=== PATIENT | female | born 1970 | race Caucasian/White ===

== ENCOUNTER 2023-09-08 20:39 | Inpatient (IN) | payer BC, MEDICARE ==
[2023-09-08 23:03] LABS: #Basophils 0.1 thou/uL (0.0-0.2); #Eosinphils 2.3 thou/uL (0.0-0.7); #Monocytes 1.5 thou/uL (0.11-0.59); #Neutrophils 10.2 thou/uL (1.40-6.50); %Basophils 0.3 % (0.0-1.0); %Lymphocytes 19.4 % (21.0-51.0); %Monocytes 8.3 % (0.0-10.0); %Neutrophils 58.5 % (42.0-75.0); Hematocrit 23.1 % (36.0-47.0); Hemoglobin 7.1 g/dL (12.0-16.0); Mean Corpuscular HGB CONC 30.7 g/dL (32.0-36.0); Mean Corpuscular Hemoglobin 27.5 pg (27.0-31.0); Mean Corpuscular Volume 89.5 fl (78.0-98.0); Mean Platelet Volume 10.5 fL (7.4-10.4); Platelet Count 455 10x3/uL (130-400); RBC Distribution Width 22.8 % (11.5-14.5); Red Blood Cell (RBC) Count 2.58 mill/uL (4.20-5.40); White Blood Cell (WBC) Count 17.5 10x3/uL (4.8-10.8)
[2023-09-08] MEDS ORDERED: Cefepime 2 GM VIAL ONE (23:06)
[2023-09-08] MEDS ORDERED: Ipratropium/Albuterol 3 ML NEB ONE (23:24)
[2023-09-08 23:32] LABS: ALT (SGPT) 46 U/L (8-55); AST (SGOT) 24 U/L (5-34); Albumin 3.8 g/dL (3.5-5.0); Alkaline Phosphatase 106 U/L (40-110); Anion Gap 16 mmol/L (10-20); BUN (Urea Nitrogen) 20 mg/dL (9.8-20.1); Bilirubin, Total 0.2 mg/dL (0.2-1.2); Calc. Creatinine Clearance 0 mL/min (70-130); Calcium 9.2 mg/dL (7.8-10.44); Carbon Dioxide 24 mmol/L (22-29); Chloride 103 mmol/L (98-107); Estimated GFR 105; Globulin 3.2 g/dL (2.4-3.5); Glucose 86 mg/dL (70-105); Potassium 4.2 mmol/L (3.5-5.1); Sodium 139 mmol/L (136-145)
[2023-09-08 23:39] LABS: Bacteria/HPF None Seen HPF (None Seen); Bilirubin Negative (Negative); Blood, Urine 2+ (Negative); CAUTI Indications for Culture Fever or rigors; Clarity Clear (Clear); Glucose, Urine (Dipstick) Normal (Negative); Ketone, Urine Negative (Negative); Leukocyte Negative Leu/uL (Negative); Nitrite Negative (Negative); Protein, Urine (Dipstick) Negative (Neg-Trace); RBC/HPF 0-3 HPF (0-3); Specific Gravity, Urine 1.023 (1.002-1.036); Squamous Epithelial None Seen HPF (0-3); Urobilinogen Normal mg/dL (Less than 2); WBC/HPF 0-3 HPF (0-3)
[2023-09-08 23:52] LABS: Urine Culture Reflex No No
[2023-09-09] MEDS ORDERED: HYDROmorphone 0.5 MG/0.5 ML SYRINGE ONE (00:39)
[2023-09-09] MEDS ORDERED: Acetaminophen 325 MG TAB PO PRN (02:41)
[2023-09-09] MEDS ORDERED: Ondansetron ODT 4 MG TAB PO PRN (02:41)
[2023-09-09] MEDS ORDERED: Ondansetron PF 4 MG/2 ML Vial IVP PRN (02:41)
[2023-09-09] MEDS ORDERED: Senokot 8.6 MG TAB PO PRN (02:43)
[2023-09-09] MEDS ORDERED: LORazepam 2 MG/ML SYR.(CARPUJECT) ONE (03:01)
[2023-09-09 03:42] LABS: Lactic Acid 0.9 mmol/L (0.5-2.2)
[2023-09-09 03:44] LABS: Anion Gap 12 mmol/L (10-20); BUN (Urea Nitrogen) 18 mg/dL (9.8-20.1); CRP (Inflammatory) 9.08 mg/dL (= or < 0.5); Calc. Creatinine Clearance 0 mL/min (70-130); Calcium 8.9 mg/dL (7.8-10.44); Carbon Dioxide 27 mmol/L (22-29); Chloride 104 mmol/L (98-107); Estimated GFR 105; Glucose 88 mg/dL (70-105); Potassium 3.9 mmol/L (3.5-5.1); Sodium 139 mmol/L (136-145)
[2023-09-09 04:39] VITALS: BMI 25.4
[2023-09-09] MEDS ORDERED: Lactated Ringer's 500 ML IV SCH (05:15)
[2023-09-09] MEDS ORDERED: Clindamycin/D5W 600 MG in Premix Bag 1 BAG IVPB SCH (08:00)
[2023-09-09] MEDS: Polyethylene Glycol 3350 17 GM Packet PO SCH (08:19)
[2023-09-09] MEDS: Heparin 5,000 UNITS/ML VIAL SC SCH ×3 (08:19→21:20)
[2023-09-09] MEDS: fentaNYL 50 mcg/mL 1 mL Vial SLOW IVP PRN ×3 (08:52→15:16)
[2023-09-09] MEDS ORDERED: Cefepime 2 GM in Sodium Chloride 0.9% 100 ML IVPB SCH (09:00)
[2023-09-09 10:44] LABS: Amphetamine Not Detected (NotDetected); Barbiturates Screen Not Detected (NotDetected); Benzodiazepine Screen Detected (NotDetected); Cocaine Metabolite Screen Not Detected (NotDetected); Methadone Not Detected (NotDetected); Methamphetamine Not Detected (NotDetected); Opiate Screen Detected (NotDetected); Oxycodone Screen Detected (NotDetected); Phencyclidine (PCP) Not Detected (NotDetected); THC/Cannabinoid Screen Not Detected (NotDetected); Tricyclic Screen Detected (NotDetected)
[2023-09-09 10:53] LABS: #Basophils 0.1 thou/uL (0.0-0.2); #Eosinphils 1.7 thou/uL (0.0-0.7); #Monocytes 0.9 thou/uL (0.11-0.59); #Neutrophils 6.1 thou/uL (1.40-6.50); %Basophils 0.5 % (0.0-1.0); %Eosinophils 16.2 % (0.0-10.0); %Lymphocytes 18.2 % (21.0-51.0); %Monocytes 8.4 % (0.0-10.0); %Neutrophils 56.4 % (42.0-75.0); Hematocrit 28.2 % (36.0-47.0); Hemoglobin 8.7 g/dL (12.0-16.0); Mean Corpuscular HGB CONC 30.9 g/dL (32.0-36.0); Mean Corpuscular Hemoglobin 26.6 pg (27.0-31.0); Mean Platelet Volume 10.5 fL (7.4-10.4); Platelet Count 360 10x3/uL (130-400); Red Blood Cell (RBC) Count 3.27 mill/uL (4.20-5.40); White Blood Cell (WBC) Count 10.8 10x3/uL (4.8-10.8)
[2023-09-09 11:29] LABS: Mean Corpuscular Volume 86.2 fl (78.0-98.0)
[2023-09-09] MEDS ORDERED: HYDROcodone/Acetaminophen 5/325 mg Tablet PO PRN (12:14)
[2023-09-09] MEDS: hydrOXYzine 25 MG TAB PO PRN ×2 (15:20→21:20)
[2023-09-09] MEDS: HYDROcodone/Acetaminophen 5/325 mg Tablet PO PRN ×2 (18:03→23:35)
[2023-09-09] MEDS: Ipratropium/Albuterol 3 ML NEB NEB PRN (19:02)
[2023-09-09] MEDS ORDERED: HYDROmorphone 2 MG TAB PO SCH (21:00)
[2023-09-09] MEDS: Pramipexole Di-HCl 1 MG TAB PO SCH (21:19)
[2023-09-09] MEDS: Amitriptyline HCl 25 MG TAB PO SCH (21:20)
[2023-09-09] MEDS: Carvedilol 3.125 MG TAB PO SCH (21:20)
[2023-09-09] MEDS: Linezolid 600 MG in Premix Bag 1 BAG IVPB SCH (21:21)
[2023-09-09] MEDS ORDERED: tiZANidine HCl 4 MG TAB PO SCH (23:59)
[2023-09-10] MEDS: Ipratropium/Albuterol 3 ML NEB NEB PRN ×3 (02:06→19:44)
[2023-09-10] MEDS: HYDROcodone/Acetaminophen 5/325 mg Tablet PO PRN ×2 (03:47→08:22)
[2023-09-10 05:09] LABS: #Basophils 0.1 thou/uL (0.0-0.2); #Neutrophils 4.1 thou/uL (1.40-6.50); %Basophils 0.7 % (0.0-1.0); %Eosinophils 21.6 % (0.0-10.0); %Lymphocytes 21.8 % (21.0-51.0); %Monocytes 10.6 % (0.0-10.0); %Neutrophils 45.1 % (42.0-75.0); Hematocrit 28.6 % (36.0-47.0); Hemoglobin 8.6 g/dL (12.0-16.0); Mean Corpuscular HGB CONC 30.1 g/dL (32.0-36.0); Mean Corpuscular Hemoglobin 26.5 pg (27.0-31.0); Mean Corpuscular Volume 88.3 fl (78.0-98.0); Mean Platelet Volume 10.1 fL (7.4-10.4); Platelet Count 349 10x3/uL (130-400); RBC Distribution Width 23.4 % (11.5-14.5); Red Blood Cell (RBC) Count 3.24 mill/uL (4.20-5.40)
[2023-09-10 05:37] LABS: Anion Gap 12 mmol/L (10-20); BUN (Urea Nitrogen) 13 mg/dL (9.8-20.1); Calc. Creatinine Clearance 119 mL/min (70-130); Calcium 8.6 mg/dL (7.8-10.44); Carbon Dioxide 26 mmol/L (22-29); Chloride 104 mmol/L (98-107); Estimated GFR 105; Glucose 123 mg/dL (70-105); Potassium 3.8 mmol/L (3.5-5.1); Sodium 138 mmol/L (136-145)
[2023-09-10] MEDS: Pramipexole Di-HCl 1 MG TAB PO SCH ×3 (08:22→20:43)
[2023-09-10] MEDS: Cefepime 2 GM in Sodium Chloride 0.9% 100 ML IVPB SCH ×2 (08:23→20:41)
[2023-09-10] MEDS: Carvedilol 3.125 MG TAB PO SCH ×2 (08:23→20:43)
[2023-09-10] MEDS: Polyethylene Glycol 3350 17 GM Packet PO SCH (08:25)
[2023-09-10] MEDS: Heparin 5,000 UNITS/ML VIAL SC SCH ×3 (08:26→20:43)
[2023-09-10] MEDS: Docusate 100 MG CAP PO PRN (10:58)
[2023-09-10] MEDS: hydrOXYzine 25 MG TAB PO PRN ×3 (10:58→23:19)
[2023-09-10] MEDS: Linezolid 600 MG in Premix Bag 1 BAG IVPB SCH (11:00)
[2023-09-10] MEDS: HYDROcodone/Acetaminophen 10/325 mg Tablet PO PRN ×3 (12:41→20:44)
[2023-09-10] MEDS: Ibuprofen 200 MG TAB PO SCH ×3 (12:42→23:19)
[2023-09-10] MEDS: Gabapentin 100 MG CAP PO SCH ×2 (15:10→20:42)
[2023-09-10] MEDS: Amitriptyline HCl 25 MG TAB PO SCH (20:42)
[2023-09-10] MEDS: Linezolid 600 MG TAB PO SCH (20:43)
[2023-09-11] MEDS: HYDROcodone/Acetaminophen 10/325 mg Tablet PO PRN ×4 (04:51→18:22)
[2023-09-11 05:35] LABS: Hematocrit 32.5 % (36.0-47.0); Hemoglobin 9.7 g/dL (12.0-16.0); Manual Diff?? YES; Mean Corpuscular HGB CONC 29.8 g/dL (32.0-36.0); Mean Corpuscular Hemoglobin 26.7 pg (27.0-31.0); Mean Corpuscular Volume 89.5 fl (78.0-98.0); Mean Platelet Volume 10.2 fL (7.4-10.4); Platelet Count 408 10x3/uL (130-400); RBC Distribution Width 23.4 % (11.5-14.5); Red Blood Cell (RBC) Count 3.63 mill/uL (4.20-5.40); White Blood Cell (WBC) Count 8.6 10x3/uL (4.8-10.8)
[2023-09-11 05:53] LABS: Delete Auto Diff?? YES
[2023-09-11] MEDS: Ibuprofen 200 MG TAB PO SCH ×3 (06:21→18:21)
[2023-09-11 06:23] LABS: Anisocytosis MARKED = >30 cells HPF (0-5); Band 1 % (5-11); CellaVision Operator ID lab.sh2; Eosinophils 28 % (0-10); Hypochromia SLIGHT = 6-15 cells HPF (0-5); Lymphocytes 22 % (21-51); Macrocytosis MODERATE=16-30 cells HPF (0-5); Monocytes 4 % (0-10); Neutrophil 43 % (42-75); Platelet Adequacy Comment Platelets Increased; Poikilocytosis SLIGHT = 6-15 cells HPF (0-5); Polychromasia SLIGHT = 2-3 cells HPF (0-2); Reactive Lymphocytes 1 % (0-10); Smudge Cells 17.2 %; Tear Drops SLIGHT = 2-5 cells HPF (0-1); Total Cell Count 99
[2023-09-11 07:01] LABS: Anion Gap 14 mmol/L (10-20); BUN (Urea Nitrogen) 14 mg/dL (9.8-20.1); Calc. Creatinine Clearance 109 mL/min (70-130); Calcium 9.1 mg/dL (7.8-10.44); Carbon Dioxide 24 mmol/L (22-29); Chloride 106 mmol/L (98-107); Estimated GFR 103; Glucose 94 mg/dL (70-105); Potassium 4.6 mmol/L (3.5-5.1); Sodium 139 mmol/L (136-145)
[2023-09-11] MEDS: Ipratropium/Albuterol 3 ML NEB NEB PRN ×2 (07:28→18:39)
[2023-09-11] MEDS: Polyethylene Glycol 3350 17 GM Packet PO SCH (07:58)
[2023-09-11] MEDS: Pramipexole Di-HCl 1 MG TAB PO SCH ×2 (07:59→11:42)
[2023-09-11] MEDS: Cefepime 2 GM in Sodium Chloride 0.9% 100 ML IVPB SCH (07:59)
[2023-09-11] MEDS: Gabapentin 100 MG CAP PO SCH (07:59)
[2023-09-11] MEDS: Heparin 5,000 UNITS/ML VIAL SC SCH ×2 (07:59→14:53)
[2023-09-11] MEDS: Carvedilol 3.125 MG TAB PO SCH (08:00)
[2023-09-11] MEDS: Linezolid 600 MG TAB PO SCH (08:00)
[2023-09-11] MEDS: Docusate 100 MG CAP PO PRN (08:08)
[2023-09-11] MEDS ORDERED: Furosemide 20 MG TAB PO SCH (09:00)
[2023-09-11] MEDS ORDERED: Melatonin 3 MG TAB PO PRN (11:52)
[2023-09-11 16:53] VITALS: BP 129/75; TEMP 98.5
[2023-09-11] MEDS ORDERED: Gabapentin 300 MG CAP PO SCH (21:00)
== END 2023-09-11 19:47 | disposition short-term general hospital (02) | DRG 871 ==
LOC: ERS 20:39 → T4-A 09-09 02:44
PROVIDERS: ADMIT Student in an Organized Health Care Education/Training Program; ATTEND Student in an Organized Health Care Education/Training Program
DX: A41.9 Sepsis, unspecified organism (principal); L89.154 Pressure ulcer of sacral region, stage 4; L97.429 Non-pressure chronic ulcer of left heel and midfoot with unspecified severity; L97.419 Non-pressure chronic ulcer of right heel and midfoot with unspecified severity; D68.59 Other primary thrombophilia; E86.0 Dehydration; D64.9 Anemia, unspecified; I50.9 Heart failure, unspecified; J44.9 Chronic obstructive pulmonary disease, unspecified; G25.81 Restless legs syndrome; M79.7 Fibromyalgia; I73.00 Raynaud's syndrome without gangrene; F41.9 Anxiety disorder, unspecified; E16.2 Hypoglycemia, unspecified; Z88.1 Allergy status to other antibiotic agents; Z88.8 Allergy status to other drugs, medicaments and biological substances; Z87.891 Personal history of nicotine dependence; Z90.49 Acquired absence of other specified parts of digestive tract; Z90.710 Acquired absence of both cervix and uterus; Z98.890 Other specified postprocedural states
CPT/HCPCS: 36415; 80048; 80053; 80306; 81001; 83605; 85025; 86140; 87040; 87086; 94640; 94760; 96365; 96367; 96375; 97139; J0692; J1170; J1644; J2020; J2060; J2405; J3010; J3490; J7120; J7620

== ENCOUNTER 2023-10-10 11:39 | Inpatient (IN) | payer BC, MEDICARE ==
[2023-10-10 12:46] LABS: #Basophils 0.2 thou/uL (0.0-0.2); #Eosinphils 1.5 thou/uL (0.0-0.7); #Monocytes 1.4 thou/uL (0.11-0.59); #Neutrophils 10.1 thou/uL (1.40-6.50); %Eosinophils 9.1 % (0.0-10.0); %Lymphocytes 17.7 % (21.0-51.0); %Monocytes 8.7 % (0.0-10.0); %Neutrophils 62.6 % (42.0-75.0); Hematocrit 40.1 % (36.0-47.0); Hemoglobin 12.7 g/dL (12.0-16.0); Mean Corpuscular HGB CONC 31.7 g/dL (32.0-36.0); Mean Corpuscular Hemoglobin 27.4 pg (27.0-31.0); Mean Corpuscular Volume 86.4 fl (78.0-98.0); Mean Platelet Volume 9.1 fL (7.4-10.4); Platelet Count 632 10x3/uL (130-400); RBC Distribution Width 22.3 % (11.5-14.5); Red Blood Cell (RBC) Count 4.64 mill/uL (4.20-5.40); White Blood Cell (WBC) Count 16.2 10x3/uL (4.8-10.8)
[2023-10-10 12:58] LABS: Bilirubin Negative (Negative); Blood, Urine 2+ (Negative); CAUTI Indications for Culture Pelvic or flank pain; Clarity Turbid (Clear); Glucose, Urine (Dipstick) Normal (Negative); Ketone, Urine Negative (Negative); Leukocyte 250 Leu/uL (Negative); Nitrite Negative (Negative); Protein, Urine (Dipstick) 100 mg/dL (Neg-Trace); Specific Gravity, Urine 1.028 (1.002-1.036); Squamous Epithelial 0-3 HPF (0-3); Urobilinogen Normal mg/dL (Less than 2); WBC/HPF 21-50 HPF (0-3); Yeast-Budding 2+ HPF (None Seen); pH, Urine 5.5 (5.0-9.0)
[2023-10-10 13:11] LABS: ALT (SGPT) 26 U/L (8-55); AST (SGOT) 35 U/L (5-34); Albumin 4.4 g/dL (3.5-5.0); Alkaline Phosphatase 172 U/L (40-110); Anion Gap 20 mmol/L (10-20); BUN (Urea Nitrogen) 31 mg/dL (9.8-20.1); Bilirubin, Total 0.4 mg/dL (0.2-1.2); Calc. Creatinine Clearance 0 mL/min (70-130); Calcium 10.5 mg/dL (7.8-10.44); Carbon Dioxide 27 mmol/L (22-29); Chloride 98 mmol/L (98-107); Estimated GFR 90; Glucose 107 mg/dL (70-105); Lipase 35 U/L (8-78); Potassium 4.8 mmol/L (3.5-5.1); Protein, Total 9.4 g/dL (6.0-8.3); Sodium 140 mmol/L (136-145)
[2023-10-10] MEDS ORDERED: Iopamidol-370 76% 500 ML MDV (1 ML CHARGE) ONE (13:12)
[2023-10-10 13:14] LABS: Bacteria/HPF 1+ HPF (None Seen)
[2023-10-10 13:16] LABS: Urine Culture Reflex Yes Yes
[2023-10-10] MEDS ORDERED: Ondansetron PF 4 MG/2 ML Vial ONE (13:23)
[2023-10-10] MEDS ORDERED: fentaNYL 50 mcg/mL 1 mL Vial ONE ×2 (13:23→16:18)
[2023-10-10] MEDS ORDERED: Pantoprazole 40 MG VIAL ONE (13:24)
[2023-10-10] MEDS ORDERED: cefTRIAXone (ROCEPHIN) 1 GM VIAL ONE (15:27)
[2023-10-10] MEDS ORDERED: Clindamycin/D5W 600 mg/50 ml Premix Bag ONE (15:27)
[2023-10-10] MEDS ORDERED: Sodium Chloride 0.9% 100 ML ONE (15:27)
[2023-10-10] MEDS ORDERED: Ondansetron PF 4 MG/2 ML Vial IVP PRN (16:23)
[2023-10-10] MEDS ORDERED: Ondansetron ODT 4 MG TAB PO PRN (16:23)
[2023-10-10] MEDS ORDERED: Melatonin 3 MG TAB PO PRN (17:12)
[2023-10-10] MEDS ORDERED: hydrOXYzine 25 MG TAB PO PRN (17:12)
[2023-10-10] MEDS ORDERED: Senokot 8.6 MG TAB PO PRN (17:12)
[2023-10-10] MEDS ORDERED: Albuterol 200 PUFF (6.7GM INHALER) INH PRN (17:12)
[2023-10-10] MEDS ORDERED: Docusate 100 MG CAP PO PRN (17:12)
[2023-10-10] MEDS: Lactated Ringer's 1,000 ML IV SCH (20:48)
[2023-10-10] MEDS: Acetaminophen 500 MG TAB PO SCH (20:49)
[2023-10-10] MEDS: Ibuprofen 200 MG TAB PO SCH (20:49)
[2023-10-10] MEDS: CeleCOXIB 100 MG CAP PO SCH (20:50)
[2023-10-10] MEDS: Carvedilol 3.125 MG TAB PO SCH (20:50)
[2023-10-10] MEDS: Amitriptyline HCl 25 MG TAB PO SCH (20:50)
[2023-10-10] MEDS: tiZANidine HCl 4 MG TAB PO SCH (20:51)
[2023-10-10] MEDS: Gabapentin 300 MG CAP PO SCH (20:51)
[2023-10-10] MEDS: Pramipexole Di-HCl 1 MG TAB PO SCH (20:51)
[2023-10-10] MEDS: Lorazepam 0.5 MG TAB PO SCH (20:51)
[2023-10-10] MEDS: levETIRAcetam 500 MG TAB PO SCH (20:51)
[2023-10-10] MEDS: traZODone HCl 50 MG TAB PO SCH (20:52)
[2023-10-10] MEDS: HYDROcodone/Acetaminophen 7.5/325 mg Tablet PO PRN (20:52)
[2023-10-10] MEDS ORDERED: Octreotide Acetate 50 MCG/ML AMP SLOW IVP SCH (22:00)
[2023-10-10] MEDS ORDERED: Octreotide Acetate 50 MCG in Sodium Chloride 0.9% 50 ML IVPB SCH (22:00)
[2023-10-10] MEDS ORDERED: Simethicone Chewable 80 MG TAB PO PRN (22:13)
[2023-10-10] MEDS ORDERED: diphenhydrAMINE 50 MG in Sodium Chloride 0.9% 50 ML IVPB SCH (22:15)
[2023-10-10] MEDS ORDERED: Dicyclomine 10 MG CAP PO SCH (22:15)
[2023-10-10] MEDS ORDERED: Lidocaine 2% Viscous Solution 10 ML, Aluminum & Magnesium Hydroxide 30 ML SSW SCH (22:15)
[2023-10-10 22:20] VITALS: BMI 25.7
[2023-10-10] MEDS ORDERED: fentaNYL 50 mcg/mL 1 mL Vial SLOW IVP SCH (22:30)
[2023-10-10] MEDS ORDERED: diphenhydrAMINE 50 MG/ML VIAL IVP SCH (22:30)
[2023-10-10] MEDS: metroNIDAZOLE 500 MG in Premix 1 BAG IVPB SCH (22:38)
[2023-10-11] MEDS: Ibuprofen 200 MG TAB PO SCH ×5 (02:17→17:00)
[2023-10-11] MEDS: Octreotide Acetate 100 MCG/ML VIAL SLOW IVP SCH ×2 (02:18→16:58)
[2023-10-11] MEDS: HYDROcodone/Acetaminophen 7.5/325 mg Tablet PO PRN ×2 (02:18→09:30)
[2023-10-11] MEDS: Lactated Ringer's 1,000 ML IV SCH ×3 (02:56→21:03)
[2023-10-11] MEDS: metroNIDAZOLE 500 MG in Premix 1 BAG IVPB SCH ×3 (07:11→22:42)
[2023-10-11 08:34] LABS: Hematocrit 32.7 % (36.0-47.0); Hemoglobin 10.3 g/dL (12.0-16.0); Manual Diff?? YES; Mean Corpuscular HGB CONC 31.5 g/dL (32.0-36.0); Mean Corpuscular Hemoglobin 27.5 pg (27.0-31.0); Mean Corpuscular Volume 87.2 fl (78.0-98.0); Mean Platelet Volume 9.5 fL (7.4-10.4); Platelet Count 401 10x3/uL (130-400); RBC Distribution Width 21.8 % (11.5-14.5); Red Blood Cell (RBC) Count 3.75 mill/uL (4.20-5.40); White Blood Cell (WBC) Count 11.7 10x3/uL (4.8-10.8)
[2023-10-11 08:45] LABS: Delete Auto Diff?? YES
[2023-10-11] MEDS ORDERED: FLU VACC QS2023-24(6MOS UP)/PF 60 MCG/0.5 ML SYRINGE IM ONE (09:00)
[2023-10-11 09:14] LABS: ALT (SGPT) 30 U/L (8-55); AST (SGOT) 42 U/L (5-34); Albumin 3.4 g/dL (3.5-5.0); Alkaline Phosphatase 136 U/L (40-110); Anion Gap 14 mmol/L (10-20); BUN (Urea Nitrogen) 22 mg/dL (9.8-20.1); Bilirubin, Total 0.4 mg/dL (0.2-1.2); Calc. Creatinine Clearance 110 mL/min (70-130); Calcium 8.9 mg/dL (7.8-10.44); Carbon Dioxide 23 mmol/L (22-29); Chloride 104 mmol/L (98-107); Estimated GFR 104; Globulin 3.7 g/dL (2.4-3.5); Glucose 102 mg/dL (70-105); Protein, Total 7.1 g/dL (6.0-8.3); Sodium 137 mmol/L (136-145)
[2023-10-11 09:24] LABS: Band 7 % (5-11); CellaVision Operator ID LAB.GE; Eosinophils 30 % (0-10); Hypochromia SLIGHT = 6-15 cells HPF (0-5); Large Platelets 0.8 % (0-5); Lymphocytes 16 % (21-51); Monocytes 9 % (0-10); Myelocyte 1 % (0-0); Neutrophil 35 % (42-75); Platelet Adequacy Comment Platelets Increased; Polychromasia MODERATE = 3-4 cells HPF (0-2); Reactive Lymphocytes 1 % (0-10); Smudge Cells 17.8 %; Total Cell Count 118
[2023-10-11] MEDS ORDERED: tiZANidine HCl 4 MG TAB PO PRN (09:30)
[2023-10-11] MEDS: levETIRAcetam 500 MG TAB PO SCH ×2 (09:31→21:01)
[2023-10-11] MEDS: Pramipexole Di-HCl 1 MG TAB PO SCH ×3 (09:31→21:02)
[2023-10-11] MEDS: Gabapentin 300 MG CAP PO SCH ×3 (09:33→21:01)
[2023-10-11] MEDS: tiZANidine HCl 4 MG TAB PO SCH (09:33)
[2023-10-11] MEDS: CeleCOXIB 100 MG CAP PO SCH ×2 (09:34→21:01)
[2023-10-11] MEDS: Carvedilol 3.125 MG TAB PO SCH ×2 (09:35→21:00)
[2023-10-11] MEDS: Lorazepam 0.5 MG TAB PO SCH ×2 (09:36→22:44)
[2023-10-11] MEDS: Furosemide 20 MG TAB PO SCH (09:36)
[2023-10-11] MEDS: Acetaminophen 500 MG TAB PO SCH ×3 (09:39→21:00)
[2023-10-11] MEDS: Cefepime 2 GM in Sodium Chloride 0.9% 100 ML IVPB SCH ×2 (09:39→21:00)
[2023-10-11] MEDS ORDERED: HYDROmorphone 0.5 MG/0.5 ML SYRINGE SLOW IVP SCH (10:00)
[2023-10-11] MEDS ORDERED: Promethazine HCl 25 MG/ML VIAL IM PRN (14:15)
[2023-10-11] MEDS ORDERED: Naloxone HCl 0.4 mg/ml Vial IV PRN (14:15)
[2023-10-11] MEDS ORDERED: Ondansetron PF 4 MG/2 ML Vial IVP PRN (14:15)
[2023-10-11] MEDS ORDERED: diphenhydrAMINE 25 MG CAP PO PRN (14:15)
[2023-10-11] MEDS ORDERED: Zolpidem Tartrate 5 MG TAB PO PRN (14:15)
[2023-10-11] MEDS ORDERED: Communication Order-Pharmacy FS SCH (14:30)
[2023-10-11] MEDS: HYDROmorphone/PF 10 MG in Sodium Chloride 0.9% 99 ML IVPB PRN (17:39)
[2023-10-11] MEDS: Octreotide Acetate 100 MCG/ML VIAL SC SCH (18:27)
[2023-10-11] MEDS: Amitriptyline HCl 25 MG TAB PO SCH (21:00)
[2023-10-11] MEDS: traZODone HCl 50 MG TAB PO SCH (22:44)
[2023-10-11] MEDS: Ipratropium/Albuterol 3 ML NEB NEB PRN (23:13)
[2023-10-12] MEDS: Ibuprofen 200 MG TAB PO SCH ×4 (01:50→18:21)
[2023-10-12] MEDS: Octreotide Acetate 100 MCG/ML VIAL SC SCH ×3 (02:11→15:15)
[2023-10-12 05:05] LABS: Hematocrit 33.8 % (36.0-47.0); Hemoglobin 10.5 g/dL (12.0-16.0); Manual Diff?? YES; Mean Corpuscular HGB CONC 31.1 g/dL (32.0-36.0); Mean Corpuscular Hemoglobin 27.5 pg (27.0-31.0); Mean Corpuscular Volume 88.5 fl (78.0-98.0); Platelet Count 458 10x3/uL (130-400); RBC Distribution Width 21.8 % (11.5-14.5); Red Blood Cell (RBC) Count 3.82 mill/uL (4.20-5.40); White Blood Cell (WBC) Count 9.9 10x3/uL (4.8-10.8)
[2023-10-12 05:20] LABS: Delete Auto Diff?? YES
[2023-10-12 05:23] LABS: ALT (SGPT) 33 U/L (8-55); AST (SGOT) 37 U/L (5-34); Albumin 3.5 g/dL (3.5-5.0); Alkaline Phosphatase 126 U/L (40-110); Anion Gap 15 mmol/L (10-20); BUN (Urea Nitrogen) 20 mg/dL (9.8-20.1); Bilirubin, Total 0.5 mg/dL (0.2-1.2); Calc. Creatinine Clearance 108 mL/min (70-130); Calcium 9.2 mg/dL (7.8-10.44); Carbon Dioxide 24 mmol/L (22-29); Chloride 104 mmol/L (98-107); Estimated GFR 103; Globulin 3.5 g/dL (2.4-3.5); Glucose 82 mg/dL (70-105); Potassium 3.9 mmol/L (3.5-5.1); Sodium 139 mmol/L (136-145)
[2023-10-12 05:46] LABS: Anisocytosis SLIGHT = 6-15 cells HPF (0-5); CellaVision Operator ID lab.abc; Eosinophils 37 % (0-10); Hypochromia SLIGHT = 6-15 cells HPF (0-5); Lymphocytes 19 % (21-51); Monocytes 6 % (0-10); Neutrophil 38 % (42-75); Platelet Adequacy Comment Platelets Normal; Polychromasia SLIGHT = 2-3 cells HPF (0-2); Total Cell Count 100
[2023-10-12] MEDS: metroNIDAZOLE 500 MG in Premix 1 BAG IVPB SCH ×3 (06:25→22:05)
[2023-10-12] MEDS: Lactated Ringer's 1,000 ML IV SCH ×2 (07:34→16:43)
[2023-10-12] MEDS: diphenhydrAMINE 50 MG/ML VIAL IM/IV PRN (07:35)
[2023-10-12] MEDS: CeleCOXIB 100 MG CAP PO SCH ×2 (09:10→21:15)
[2023-10-12] MEDS: Acetaminophen 500 MG TAB PO SCH ×3 (09:11→21:16)
[2023-10-12] MEDS: Pramipexole Di-HCl 1 MG TAB PO SCH ×3 (09:11→21:15)
[2023-10-12] MEDS: Lorazepam 0.5 MG TAB PO SCH ×2 (09:12→21:14)
[2023-10-12] MEDS: Gabapentin 300 MG CAP PO SCH ×2 (09:12→15:15)
[2023-10-12] MEDS: Carvedilol 3.125 MG TAB PO SCH ×2 (09:13→21:16)
[2023-10-12] MEDS: Cefepime 2 GM in Sodium Chloride 0.9% 100 ML IVPB SCH ×2 (09:13→21:16)
[2023-10-12] MEDS: levETIRAcetam 500 MG TAB PO SCH ×2 (09:13→21:15)
[2023-10-12] MEDS: traZODone HCl 50 MG TAB PO SCH (21:15)
[2023-10-12] MEDS: Amitriptyline HCl 25 MG TAB PO SCH (21:16)
[2023-10-13] MEDS: Gabapentin 300 MG CAP PO SCH ×4 (00:01→20:45)
[2023-10-13] MEDS: Ibuprofen 200 MG TAB PO SCH ×5 (01:16→18:03)
[2023-10-13] MEDS: Lactated Ringer's 1,000 ML IV SCH (01:27)
[2023-10-13] MEDS: Octreotide Acetate 100 MCG/ML VIAL SC SCH ×3 (01:27→16:06)
[2023-10-13 05:37] LABS: Hematocrit 32.3 % (36.0-47.0); Hemoglobin 9.7 g/dL (12.0-16.0); Manual Diff?? YES; Mean Corpuscular Hemoglobin 27.3 pg (27.0-31.0); Mean Platelet Volume 9.2 fL (7.4-10.4); Platelet Count 420 10x3/uL (130-400); RBC Distribution Width 21.5 % (11.5-14.5); Red Blood Cell (RBC) Count 3.55 mill/uL (4.20-5.40); White Blood Cell (WBC) Count 11.3 10x3/uL (4.8-10.8)
[2023-10-13] MEDS: metroNIDAZOLE 500 MG in Premix 1 BAG IVPB SCH ×2 (06:10→15:03)
[2023-10-13 06:12] LABS: ALT (SGPT) 33 U/L (8-55); AST (SGOT) 30 U/L (5-34); Albumin 3.1 g/dL (3.5-5.0); Alkaline Phosphatase 106 U/L (40-110); Anion Gap 15 mmol/L (10-20); BUN (Urea Nitrogen) 16 mg/dL (9.8-20.1); Bilirubin, Total 0.2 mg/dL (0.2-1.2); Calc. Creatinine Clearance 124 mL/min (70-130); Calcium 8.6 mg/dL (7.8-10.44); Carbon Dioxide 22 mmol/L (22-29); Chloride 106 mmol/L (98-107); Estimated GFR 105; Globulin 3.1 g/dL (2.4-3.5); Glucose 110 mg/dL (70-105); Potassium 4.2 mmol/L (3.5-5.1); Protein, Total 6.2 g/dL (6.0-8.3); Sodium 139 mmol/L (136-145)
[2023-10-13 06:37] LABS: Delete Auto Diff?? YES
[2023-10-13 07:54] LABS: Anisocytosis MODERATE=16-30 cells HPF (0-5); Band 2 % (5-11); CellaVision Operator ID LAB.CMB; Eosinophils 33 % (0-10); Lymphocytes 19 % (21-51); Macrocytosis SLIGHT = 6-15 cells HPF (0-5); Monocytes 7 % (0-10); Neutrophil 36 % (42-75); Platelet Adequacy Comment Platelets Increased; Polychromasia MODERATE = 3-4 cells HPF (0-2); Reactive Lymphocytes 1 % (0-10); Total Cell Count 109
[2023-10-13] MEDS ORDERED: Diphenoxylate HCl/Atropine Tablet PO SCH (08:15)
[2023-10-13] MEDS ORDERED: Lidocaine 2% Viscous 100 ML BOTTLE SSW SCH (09:00)
[2023-10-13] MEDS: Pramipexole Di-HCl 1 MG TAB PO SCH ×3 (09:02→20:46)
[2023-10-13] MEDS: CeleCOXIB 100 MG CAP PO SCH ×2 (09:03→20:45)
[2023-10-13] MEDS: Furosemide 20 MG TAB PO SCH (09:03)
[2023-10-13] MEDS: Diphenoxylate HCl/Atropine Tablet PO SCH ×3 (09:03→20:46)
[2023-10-13] MEDS: Acetaminophen 500 MG TAB PO SCH ×3 (09:04→20:46)
[2023-10-13] MEDS: Cefepime 2 GM in Sodium Chloride 0.9% 100 ML IVPB SCH (09:04)
[2023-10-13] MEDS: Carvedilol 3.125 MG TAB PO SCH ×2 (09:04→20:45)
[2023-10-13] MEDS: Lorazepam 0.5 MG TAB PO SCH ×2 (09:05→20:45)
[2023-10-13] MEDS: levETIRAcetam 500 MG TAB PO SCH ×2 (09:05→20:45)
[2023-10-13] MEDS: HYDROmorphone/PF 10 MG in Sodium Chloride 0.9% 99 ML IVPB PRN (10:49)
[2023-10-13] MEDS: Lidocaine 4% Topical Sol 50 ML BOT TOP SCH ×2 (12:45→20:54)
[2023-10-13] MEDS ORDERED: metroNIDAZOLE 500 MG TAB PO SCH ×2 (15:45→23:59)
[2023-10-13] MEDS ORDERED: HYDROmorphone 2 MG TAB PO PRN (16:19)
[2023-10-13] MEDS: Amitriptyline HCl 25 MG TAB PO SCH (20:45)
[2023-10-13] MEDS: traZODone HCl 50 MG TAB PO SCH (20:46)
[2023-10-13] MEDS ORDERED: HYDROmorphone/PF 10 MG in Sodium Chloride 0.9% 99 ML IVPB PRN (21:20)
[2023-10-14] MEDS: Ibuprofen 200 MG TAB PO SCH ×4 (00:21→17:56)
[2023-10-14] MEDS: Octreotide Acetate 100 MCG/ML VIAL SC SCH ×2 (00:22→09:04)
[2023-10-14 04:58] LABS: Hematocrit 36.4 % (36.0-47.0); Hemoglobin 11.2 g/dL (12.0-16.0); Manual Diff?? YES; Mean Corpuscular HGB CONC 30.8 g/dL (32.0-36.0); Mean Corpuscular Hemoglobin 27.7 pg (27.0-31.0); Mean Corpuscular Volume 90.1 fl (78.0-98.0); Mean Platelet Volume 9.1 fL (7.4-10.4); Platelet Count 476 10x3/uL (130-400); RBC Distribution Width 21.6 % (11.5-14.5); Red Blood Cell (RBC) Count 4.04 mill/uL (4.20-5.40); White Blood Cell (WBC) Count 10.9 10x3/uL (4.8-10.8)
[2023-10-14] MEDS: Diphenoxylate HCl/Atropine Tablet PO SCH ×3 (04:59→15:37)
[2023-10-14] MEDS: Lidocaine 4% Topical Sol 50 ML BOT TOP SCH ×2 (05:00→12:52)
[2023-10-14 05:11] LABS: Delete Auto Diff?? YES
[2023-10-14 05:50] LABS: CellaVision Operator ID lab.abc; Eosinophils 40 % (0-10); Lymphocytes 22 % (21-51); Monocytes 4 % (0-10); Neutrophil 30 % (42-75); Platelet Adequacy Comment Platelets Increased; Polychromasia SLIGHT = 2-3 cells HPF (0-2); RBC Morphology Within Normal Limits; Reactive Lymphocytes 3 % (0-10); Total Cell Count 100
[2023-10-14 06:12] LABS: ALT (SGPT) 30 U/L (8-55); AST (SGOT) 23 U/L (5-34); Albumin 3.4 g/dL (3.5-5.0); Alkaline Phosphatase 111 U/L (40-110); Anion Gap 15 mmol/L (10-20); BUN (Urea Nitrogen) 16 mg/dL (9.8-20.1); Bilirubin, Total 0.2 mg/dL (0.2-1.2); Calc. Creatinine Clearance 112 mL/min (70-130); Calcium 9.1 mg/dL (7.8-10.44); Carbon Dioxide 27 mmol/L (22-29); Chloride 103 mmol/L (98-107); Estimated GFR 103; Globulin 3.7 g/dL (2.4-3.5); Glucose 116 mg/dL (70-105); Protein, Total 7.1 g/dL (6.0-8.3); Sodium 141 mmol/L (136-145)
[2023-10-14] MEDS: Pramipexole Di-HCl 1 MG TAB PO SCH ×2 (08:59→12:59)
[2023-10-14] MEDS: diphenhydrAMINE 50 MG/ML VIAL IM/IV PRN ×2 (09:00→13:10)
[2023-10-14] MEDS: CeleCOXIB 100 MG CAP PO SCH (09:02)
[2023-10-14] MEDS: levETIRAcetam 500 MG TAB PO SCH (09:03)
[2023-10-14] MEDS: Lorazepam 0.5 MG TAB PO SCH (09:03)
[2023-10-14] MEDS: Gabapentin 300 MG CAP PO SCH ×2 (09:03→15:36)
[2023-10-14] MEDS: Carvedilol 3.125 MG TAB PO SCH (09:04)
[2023-10-14] MEDS: Acetaminophen 325 MG TAB PO SCH ×2 (09:15→15:36)
[2023-10-14] MEDS: Ipratropium/Albuterol 3 ML NEB NEB PRN (10:11)
[2023-10-14] MEDS ORDERED: HYDROmorphone 2 MG TAB PO PRN (14:49)
[2023-10-14 15:56] VITALS: BP 129/79; TEMP 98.1
[2023-10-14] MEDS ORDERED: Octreotide Acetate 50 MCG/ML AMP SC SCH (17:00)
== END 2023-10-14 18:45 | disposition home or self-care (01) | DRG 394 ==
LOC: ERS 11:39 → ERHOLD 16:19 → OBSVTOIN 16:26 → 2NO 19:44
PROVIDERS: ADMIT Family Medicine; ATTEND Family Medicine
DX: K63.2 Fistula of intestine (principal); N39.0 Urinary tract infection, site not specified; S41.102A Unspecified open wound of left upper arm, initial encounter; S41.101A Unspecified open wound of right upper arm, initial encounter; Z51.5 Encounter for palliative care; D64.9 Anemia, unspecified; I50.9 Heart failure, unspecified; J44.9 Chronic obstructive pulmonary disease, unspecified; S91.302A Unspecified open wound, left foot, initial encounter; S91.301A Unspecified open wound, right foot, initial encounter; S31.000A Unspecified open wound of lower back and pelvis without penetration into retroperitoneum, initial encounter; D75.839 Thrombocytosis, unspecified; Z88.1 Allergy status to other antibiotic agents; Z88.0 Allergy status to penicillin; Z88.5 Allergy status to narcotic agent; Z88.8 Allergy status to other drugs, medicaments and biological substances; Z79.899 Other long term (current) drug therapy; Z82.49 Family history of ischemic heart disease and other diseases of the circulatory system; Z80.9 Family history of malignant neoplasm, unspecified; Z87.891 Personal history of nicotine dependence; Z90.710 Acquired absence of both cervix and uterus; Z98.1 Arthrodesis status; Z90.49 Acquired absence of other specified parts of digestive tract; Z93.3 Colostomy status
CPT/HCPCS: 36415; 74177; 80053; 81001; 83605; 83690; 85025; 87040; 87086; 94640; 96361; 96365; 96367; 96375; 96376; 97139; C9113; J0692; J0696; J1170; J1200; J1650; J2354; J2405; J3010; J3490; J7120; J7620; Q9967